=== PATIENT | male | born 1995 | race Caucasian/White ===

== ENCOUNTER 2024-04-21 06:05 | Day surgery (SDC) | payer BC, SELFPAY ==
[2024-04-21] VITALS (12 sets, daily range): BP systolic 116–158; BP diastolic 72–100; BMI 25.0
[2024-04-21] MEDS: CELEBREX 200 MG PO (06:33)
[2024-04-21] MEDS: TYLENOL 1000 MG PO (06:33)
[2024-04-21] MEDS: NORMOSOL-R/PLASMALYTE-A 1000 IV (06:34)
[2024-04-21] MEDS: DEMEROL 12.5 MG IV ×2 (09:00→09:26)
== END 2024-04-21 10:56 | disposition home or self-care (01) ==
LOC: SDS 06:05
PROVIDERS: ATTENDING PHYSICIAN Orthopaedic Surgery
DX: S82.832A Other fracture of upper and lower end of left fibula, initial encounter for closed fracture (principal); W03.XXXA Other fall on same level due to collision with another person, initial encounter
CPT/HCPCS: 27792; 73610; 76000; C1713

== ENCOUNTER → 2025-01-30 16:52 | Outpatient (REF) | payer OTHER, SELFPAY | LOC: RAD 16:52 | PROVIDERS: ATTENDING PHYSICIAN Nurse Practitioner Adult Health | DX: M54.41 Lumbago with sciatica, right side (principal) | CPT/HCPCS: 72110 ==

== ENCOUNTER → 2025-04-07 06:47 | Outpatient (REF) | payer OTHER, SELFPAY | LOC: MRI 3T 06:47 | PROVIDERS: ATTENDING PHYSICIAN Nurse Practitioner Adult Health | DX: G89.29 Other chronic pain (principal); M54.50 Low back pain, unspecified | CPT/HCPCS: 72148 ==